=== PATIENT | male | born 1970 | race Caucasian/White ===

== ENCOUNTER 2017-08-27 15:40 | Emergency (ER) | payer BC, SELFPAY ==
[2017-08-27 15:44] VITALS: BP 156/99; PULSE 81; PULSE 82; RESP 17; TEMP 36.9; O2SAT 97; BMI 40.9
--- NOTE | 2017-08-27 16:03 | EKG12_ITS ---
Test Reason : ABD PAIN Blood Pressure : / mmHG Vent. Rate : 070 BPM Atrial Rate : 070 BPM P-R Int : 184 ms QRS Dur : 100 ms QT Int : 394 ms P-R-T Axes : 030 026 044 degrees QTc Int : 425 ms Normal sinus rhythm Normal ECG Confirmed by MABEL VILLATORO, TOBY ([id number]), city editor REGIS QUINTANILLA ([id number]) on 08/30/2017 8:50:11 AM Referred By: PRITI Confirmed By:TOBY MONROE MD
--- NOTE | 2017-08-27 16:04 | CT_ITS ---
CT Abdomen And Pelvis W/ Contrast INDICATION: DIFFUSE ABDOMEN PAIN X 3 DAYS,DIARRHEAhx:htn,enlarged heart COMPARISON: None TECHNIQUE: Axial CT imaging of the abdomen and pelvis with IV contrast. Coronal and sagittal reformatted images. Radiation dose optimization technique applied. 100 mL of Isovue-300 were given intravenously. FINDINGS: Visualized lung bases are clear. The heart size is normal. The liver is diffusely low in density compatible with fatty infiltration. Gallbladder contains multiple gallstones. No evidence of pericholecystic fluid. Spleen is normal in size. Adrenal glands and pancreas are unremarkable. The kidneys enhance contrast symmetrically bilaterally and are without evidence of hydronephrosis. Urinary bladder is unremarkable. Bowel loops are nondistended. Appendix is unremarkable. There is no evidence of free air or free fluid. Osseous structures demonstrate bilateral L5 pars defect and degenerative disc disease at L3-4, L4-5, and L5-S1. CT/Abdomen/Pelvis WITH Contrast IMPRESSION: Hepatic steatosis. Cholelithiasis without evidence of acute cholecystitis. Normal appendix. Degenerative changes at the lower lumbar spine. at 9132 Reported and signed by: Drea Adair MD Electronically Signed: Drea Adair MD at 17:50 EDT Tel , Service support ,
--- NOTE | 2017-08-27 16:06 | ED.DCSUM_ITS ---
- ER Visit Summary Date of Service: 08/27/17 Chief Complaint: Abdominal pain History of Present Illness: The patient is a 46 M presenting with abdominal pain , nausea, vomiting, diarrhea. His symptoms started on . He started with diarrhea. The diarrhea has since resolved. He has had vomiting for the past 2 days. He only had one episode of vomiting today. He denies blood in his stool or emesis. Denies recent travel. Denies any recent antibiotics. He does not have sick contacts. Thought initially this may have been from bad food exposure. He has had subjective fever. Denies chest pain or shortness of breath. Denies other complaints. Physical Examination: Vitals are stable. Patient is afebrile. Alert no acute distress. HEENT exam is unremarkable. Neck is supple. Lungs are clear and equal bilaterally. Heart is regular rate and rhythm. Abdomen is soft mild diffuse tenderness with no rebound or guarding. Extremities are unremarkable. Skin is warm and dry. No focal neurologic deficit. Remainder of exam is unremarkable. Emergency Department Course and Treatment: Patient given IV fluids, Zofran with improvement. CBC, chemistries unremarkable other than creatinine 1.39. Liver lipase are normal. Urinalysis unremarkable. Troponin is negative. EKG is sinus rate is 70 with no acute ischemic changes. CT abdomen pelvis shows hepatic steatosis, cholelithiasis, normal appendix. On reevaluation, patient states his pain is resolved. He is able to tolerate p.o. He is advised to follow-up with his primary care physician. He is given a prescription for Zofran. Advised return to ED for worsening complaints. Disposition: Discharge home Impression: Abdominal pain, nausea, vomiting, diarrhea This note was generated with [employer] dictation software. It may contain incorrect words, spelling, and punctuation that were not noted in review of the chart prior to signing ED Disposition - Plan for ED Patient: Chief Complaint: Abd Pain Instructions: ED Abdominal Pain Unkn Cause Prescriptions: Ondansetron [Zofran Odt] 4 mg PO Q8H PRN PRN #10 tablet PRN Reason: Nausea Referrals: Luisa Gonsales MD [Primary Care Provider] -
[2017-08-27] MEDS: Ondansetron 4 MG/2 ML Vial IV (16:09)
[2017-08-27] MEDS: 0.9% Normal Saline 1,000 ML 1000 ML IV (16:09)
[2017-08-27 16:11] LABS: Absolute Lymphocyte Count 1.14 X10^3/ul (0.83-4.51); Absolute Neutrophil Count 7.5 X10^3/uL (2.0-7.7); Basophil# 0.01 X10^3/uL; Basophil% 0.1 % (0-1); Eosinophil# 0.02 X10^3/uL; Eosinophils% 0.2 % (0-5); Hematocrit 52.4 % (40-54); Lymphocyte # 1.14 X10^3/ul (4.0); Lymphocyte % 11.9 % (19-41); Mean Corp Hgb Conc 35.1 g/gl (32-36); Mean Corpuscular Hgb 31.3 pg (27.0-32.0); Mean Corpuscular Volume 89.1 fL (80-94); Mean Platelet Vol. 10.1 fl (6.2-12.0); Monocyte# 0.89 X10^3/uL; Monocyte% 9.3 % (0-10); Neutrophil # 7.48 X10^3/uL (2.7-7.7); Neutrophil % 77.9 % (47-70); Platelet Count 214 K/mm3 (150-450); RBC Distribution Width CV 12.4 % (11.6-14.6); RBC Distribution Width SD 40.1 fl (35.1-43.9); Red Blood Count 5.88 M/mm3 (4.6-6.2); White Blood Count 9.6 K/mm3 (4.4-11.0)
[2017-08-27 16:14] LABS: Hemoglobin 18.4 g/dl (13.0-16.5); POSITIVE COUNT NO; POSITIVE DIFFERENTIAL NO; POSITIVE MORPHOLOGY NO
[2017-08-27 16:59] LABS: AST(SGOT) 20 U/L (15-37); Alanine Aminotransfer ALT/SGPT 45 U/L (16-61); Albumin, Serum 4.2 g/dL (3.2-5.0); Alkaline Phosphatase 98 U/L (45-117); Anion Gap 11 (5-15); BUN 13 mg/dL (7-18); BUN/Creat Ratio 9.4 RATIO (10-20); Bilirubin, Direct 0.13 mg/dL (0.00-0.30); Calcium,Total 8.4 mg/dL (8.5-10.1); Chloride 103 mmol/L (98-107); Creatinine, Serum 1.39 mg/dL (0.70-1.30); EST Glomerular Filtration Rate 58 mL/min (>60); Est Glom Filt Rate - Afr Amer 70 mL/min (>60); Estimated Creatinine Clearance 75.56 ml/min; Glucose 96 mg/dL (74-106); Lipase 136 U/L (73-393); Potassium 3.6 mmol/L (3.5-5.1); Protein, Total 8.2 g/dL (6.4-8.2); Sodium Level 139 mmol/L (136-145)
[2017-08-27 17:14] LABS: Bacteria 0 SEEN /hpf (None Seen); Mucous, Urine 0 SEEN /hpf (<or=2+)
[2017-08-27 17:18] LABS: Glucose, Dipstick Normal (Normal); Ketone-Dipstick Negative (Negative); Leukocyte Esterase-Dipstick Negative /ul (Negative); Nitrite-Dipstick Negative (Negative); Occult Blood-Urine Negative /ul (Negative); Protein-Dipstick 100 mg/dl (Negative); Specific Gravity, Urine 1.005 (1.002-1.030); Urine Bilirubin Dipstick Negative (Negative); Urine Urobilinogen Normal (Normal)
[2017-08-27 17:28] LABS: Color, Urine STRAW (Yellow); Urine Clarity Clear (Clear)
[2017-08-27 17:41] VITALS: BP 137/88; PULSE 97; RESP 16; O2SAT 98
[2017-08-27 18:32] LABS: Squamous Epithelial Cells - UA 0-5 SEEN /hpf (0-5)
[2017-08-27 18:33] LABS: Red Blood Cells-Urine 0-5 SEEN /hpf (0-5); White Blood Cells 0-5 SEEN /hpf (0-5)
--- NOTE | 2017-08-27 19:00 | ED.DEP ---
ED Disposition - Plan for ED Patient: Chief Complaint: Abd Pain Instructions: ED Abdominal Pain Unkn Cause Prescriptions: Ondansetron [Zofran Odt] 4 mg PO Q8H PRN PRN #10 tablet PRN Reason: Nausea Referrals: Luisa Gonsales MD [Primary Care Provider] -
[2017-08-27 19:15] VITALS: BP 146/91; PULSE 77; RESP 15; O2SAT 98
== END 2017-08-27 19:19 | disposition home or self-care (01) ==
PROVIDERS: Emergency Provider Emergency Medicine; Family Provider Internal Medicine; PCP Internal Medicine
DX: R10.9 Unspecified abdominal pain (principal); R11.2 Nausea with vomiting, unspecified; R19.7 Diarrhea, unspecified; K80.20 Calculus of gallbladder without cholecystitis without obstruction; K76.0 Fatty (change of) liver, not elsewhere classified; I10 Essential (primary) hypertension; Z72.0 Tobacco use; Z79.82 Long term (current) use of aspirin; Z79.899 Other long term (current) drug therapy
CPT/HCPCS: 74177; 80048; 80076; 81001; 83690; 84484; 85025; 93005; 96361; 96374; 99284; J7030; Q9967; A4216; J2405